=== PATIENT | male | born 1945 | race Caucasian/White ===

== ENCOUNTER 2023-01-09 16:23 | Emergency (ER) | payer MEDICARE ==
--- NOTE | 2023-01-09 16:42 | ED ---
General Adult HPI - General Source: patient Mode of arrival: ambulatory Limitations: no limitations <Davin Rodriguez - Last Filed: 01/09/23 16:35> <Tony Romero - Last Filed: 01/10/23 17:06> - General Chief complaint: Neuro Symptoms/Deficit Stated complaint: Poss Stroke - History of Present Illness Initial comments: 77-year-old male with no significant past medical history presents to the ED for chief complaint of vision loss. Patient states approximately a week ago lost vision in his right eye. Patient states she felt as if a curtain was closing over his right eye. Patient states that this lasted for approximately 15 minut es. Patient states he gradually regained vision in his right eye but notes she started seeing flashes in his peripheral vision. States he saw his museum curator today, Dr. Alonso Rollins, who reportedly did a workup which was unremarkable and advised him to see cardiology. States that Dr. Huffman's PA advised him to present to the ED to rule out a stroke. No other complaints. Nonsmoker nondrinker. (Davin Rodriguez) This is a 77-year-old male DF for evaluation. Presents today for evaluation of transient visual loss. Vision loss in his right eye which resolved. Patient did present to an museum curator and then presents the emergency department today for evaluation of possible stroke (Tony Romero) - Related Data Allergies Allergy/AdvReac Type Severity Reaction Status Date / Time Sulfa (Sulfonamide AdvReac Rash/Hives Verified 01/09/23 16:25 Antibiotics) Review of Systems ROS Other: All systems not noted in ROS Statement are negative. <Davin Rodriguez - Last Filed: 01/09/23 16:35> ROS Other: All systems not noted in ROS Statement are negative. <Tony Romero - Last Filed: 01/10/23 17:06> ROS Statement: Those systems with pertinent positive or pertinent negative responses have been documented in the HPI. Past Medical History Past Medical History: Hyperlipidemia History of Any Multi-Drug Resistant Organisms: None Reported Past Surgical History: No Surgical Hx Reported Past Psychological History: No Psychological Hx Reported Smoking Status: Never smoker Past Alcohol Use History: None Reported Past Drug Use History: None Reported <Davin Rodriguez - Last Filed: 01/09/23 16:35> General Exam Limitations: no limitations <Davin Rodriguez - Last Filed: 01/09/23 16:35> General appearance: alert, in no apparent distress Head exam: Present: atraumatic, normocephalic, normal inspection Eye exam: Present: normal appearance, PERRL, EOMI. Absent: scleral icterus, conjunctival injection, periorbital swelling ENT exam: Present: normal exam, mucous membranes moist Neck exam: Present: normal inspection. Absent: tenderness, meningismus, lymphadenopathy Respiratory exam: Present: normal lung sounds bilaterally. Absent: respiratory distress, wheezes, rales, rhonchi, stridor Cardiovascular Exam: Present: regular rate, normal rhythm, normal heart sounds. Absent: systolic murmur, diastolic murmur, rubs, gallop, clicks GI/Abdominal exam: Present: soft, normal bowel sounds. Absent: distended, tenderness, guarding, rebound, rigid Extremities exam: Present: normal inspection, full ROM, normal capillary refill. Absent: tenderness, pedal edema, joint swelling, calf tenderness Back exam: Present: normal inspection Neurological exam: Present: alert, oriented X3, CN II-XII intact Psychiatric exam: Present: normal affect, normal mood Skin exam: Present: warm, dry, intact, normal color. Absent: rash <Tony Romero - Last Filed: 01/10/23 17:06> Course <Tony Romero - Last Filed: 01/10/23 17:06> Vital Signs 01/09/23 01/09/23 01/09/23 16:25 16:47 20:46 Temperature 97.9 F 97.6 F Pulse Rate 70 67 56 L Respiratory 16 20 16 Rate Blood Pressure 155/76 186/99 186/99 O2 Sat by Pulse 100 100 100 Oximetry 01/09/23 21:56 Temperature 97.9 F Pulse Rate 58 L Respiratory 18 Rate Blood Pressure 144/87 O2 Sat by Pulse 99 Oximetry - Reevaluation(s) Reevaluation #1: 01/09/23 20:05 Record is reviewed (Tony Romero) Reevaluation #2: 01/09/23 20:05 Patient's symptoms remained improved without symptoms here in the ER (Tony Romero) Reevaluation #3: 01/10/23 17:05 patient informed of results questions answered (Tony Romero) Reevaluation #4: 01/09/23 23:42 Was pt. sent in by a medical professional or institution? @ -no Did you speak to anyone other than the patient for history? @ -no Did you review nursing and triage notes? @ -agree Were old charts reviewed? @ -yes Differential Diagnosis? @ -prior EKG interpreted by me (3pts min.)? @ -yes X-rays interpreted by me (1pt min.)? @ -yes CT interpreted by me (1pt min.)? @ -no U/S interpreted by me (1pt. min.)? @ -no What testing was considered but not performed? (CT, X-rays, U/S, labs)? Why? @ -no What meds were considered but not given? Why? @ -no Did you discuss the management of the patient with other professionals? @ -no Did you reconcile home meds? @ -no Was smoking cessation discussed for >3mins.? @ -no Was critical care preformed (if so, how long)? @ -no Were there social determinants of health that impacted care today? How? (Homelessness, low income, unemployed, alcoholism, drug addiction, transportation, low edu. Level, literacy, decrease access to med. care, fpc, rehab)? @ -no Was there de-escalation of care discussed even if they declined? (Discuss DNR or withdrawal of care, Hospice)? @ -no What co-morbidities impacted this encounter? (DM, HTN, Smoking, COPD, CAD, Cancer, CVA, Hep., AIDS, mental health diagnosis, sleep apnea, morbid obesity)? @ -none Was patient admitted / discharged? @ - Undiagnosed new problem with uncertain prognosis? @ -no Drug Therapy requiring intensive monitoring for toxicity (Heparin, Nitro, Insul in, Cardizem)? @ -no Were any procedures done? @ -no Diagnosis/symptom? @ - Acute, or Chronic, or Acute on Chronic? @ -acute Uncomplicated (without systemic symptoms) or Complicated (systemic symptoms)? @ -complicated Side effects of treatment? @ -no Exacerbation, Progression, or Severe Exacerbation] @ -no Poses a threat to life or bodily function? @ -yes (Tony Romero) EKG Findings - EKG Comments: EKG Findings:: EKG is sinus 62 ND 173 QRS 154 QTc 424 - EKG Results: EKG: interpreted by ERMD <Tony Romero - Last Filed: 01/10/23 17:06> Medical Decision Making - Lab Data Result diagrams: 01/09/23 17:10 01/09/23 17:10 <Tony Romero - Last Filed: 01/10/23 17:06> - Medical Decision Making 77 male DF for evaluation (Tony Romero) - Lab Data Lab Results 01/09/23 01/09/23 01/09/23 Range/Units 17:10 17:10 17:10 WBC 6.2 (3.8-10.6) k/uL RBC 4.45 (4.30-5.90) m/uL Hgb 14.4 (13.0-17.5) gm/dL Hct 43.8 (39.0-53.0) % MCV 98.4 (80.0-100.0) fL MCH 32.2 (25.0-35.0) pg MCHC 32.8 (31.0-37.0) g/dL RDW 12.3 (11.5-15.5) % Plt Count 260 (150-450) k/uL MPV 7.6 Neutrophils % 66 % Lymphocytes % 20 % Monocytes % 8 % Eosinophils % 4 % Basophils % 0 % Neutrophils # 4.1 (1.3-7.7) k/uL Lymphocytes # 1.3 (1.0-4.8) k/uL Monocytes # 0.5 (0-1.0) k/uL Eosinophils # 0.2 (0-0.7) k/uL Basophils # 0.0 (0-0.2) k/uL PT 10.5 (9.0-12.0) sec INR 1.0 (<1.2) APTT 22.5 (22.0-30.0) sec Sodium 139 (137-145) mmol/L Potassium 3.7 (3.5-5.1) mmol/L Chloride 106 (98-107) mmol/L Carbon Dioxide 27 (22-30) mmol/L Anion Gap 6 mmol/L BUN 20 (9-20) mg/dL Creatinine 0.79 (0.66-1.25) mg/dL Est GFR (CKD-EPI)AfAm >90 (>60 ml/min/1.73 sqM) Est GFR (CKD-EPI)NonAf 88 (>60 ml/min/1.73 sqM) Glucose 99 (74-99) mg/dL Calcium 8.9 (8.4-10.2) mg/dL Total Bilirubin 1.7 H (0.2-1.3) mg/dL AST 40 (17-59) U/L ALT 30 (4-49) U/L Alkaline Phosphatase 49 (38-126) U/L Creatine Kinase 260 H (55-170) U/L Troponin I (0.000-0.034) ng/mL Total Protein 6.3 (6.3-8.2) g/dL Albumin 3.8 (3.5-5.0) g/dL 01/09/23 Range/Units 17:10 WBC (3.8-10.6) k/uL RBC (4.30-5.90) m/uL Hgb (13.0-17.5) gm/dL Hct (39.0-53.0) % MCV (80.0-100.0) fL MCH (25.0-35.0) pg MCHC (31.0-37.0) g/dL RDW (11.5-15.5) % Plt Count (150-450) k/uL MPV Neutrophils % % Lymphocytes % % Monocytes % % Eosinophils % % Basophils % % Neutrophils # (1.3-7.7) k/uL Lymphocytes # (1.0-4.8) k/uL Monocytes # (0-1.0) k/uL Eosinophils # (0-0.7) k/uL Basophils # (0-0.2) k/uL PT (9.0-12.0) sec INR (<1.2) APTT (22.0-30.0) sec Sodium (137-145) mmol/L Potassium (3.5-5.1) mmol/L Chloride (98-107) mmol/L Carbon Dioxide (22-30) mmol/L Anion Gap mmol/L BUN (9-20) mg/dL Creatinine (0.66-1.25) mg/dL Est GFR (CKD-EPI)AfAm (>60 ml/min/1.73 sqM) Est GFR (CKD-EPI)NonAf (>60 ml/min/1.73 sqM) Glucose (74-99) mg/dL Calcium (8.4-10.2) mg/dL Total Bilirubin (0.2-1.3) mg/dL AST (17-59) U/L ALT (4-49) U/L Alkaline Phosphatase (38-126) U/L Creatine Kinase (55-170) U/L Troponin I <0.012 (0.000-0.034) ng/mL Total Protein (6.3-8.2) g/dL Albumin (3.5-5.0) g/dL Disposition <Davin Rodriguez - Last Filed: 01/09/23 16:35> Is patient prescribed a controlled substance at d/c from ED?: No Time of Disposition: 21:30 <Tony Romero - Last Filed: 01/10/23 17:06> Clinical Impression: Transient cerebral ischemia, Amaurosis fugax of right eye Disposition: HOME SELF-CARE Condition: Good Instructions (If sedation given, give patient instructions): Transient Ischemic Attack (ED) Referrals: None,Stated [REFERRING] - 1-2 days
[2023-01-09 17:27] LABS: Basophils % (A) 0 %; Eosinophils # (A) 0.2 k/uL (0-0.7); Eosinophils % (A) 4 %; HCT 43.8 % (39.0-53.0); HGB 14.4 gm/dL (13.0-17.5); Lymphocytes # (A) 1.3 k/uL (1.0-4.8); Lymphocytes % (A) 20 %; MCH 32.2 pg (25.0-35.0); MCHC 32.8 g/dL (31.0-37.0); MCV 98.4 fL (80.0-100.0); Mean Platelet Volume 7.6; Monocytes # (A) 0.5 k/uL (0-1.0); Monocytes % (A) 8 %; Neutrophils # (A) 4.1 k/uL (1.3-7.7); Neutrophils % (A) 66 %; Platelet Count 260 k/uL (150-450); RBC 4.45 m/uL (4.30-5.90); RDW 12.3 % (11.5-15.5); WBC 6.2 k/uL (3.8-10.6)
[2023-01-09 17:39] LABS: ALT 30 U/L (4-49); AST 40 U/L (17-59); African American GFR (CKD) >90 (>60 ml/min/1.73 sqM); Albumin 3.8 g/dL (3.5-5.0); Alkaline Phosphatase 49 U/L (38-126); Anion Gap 6 mmol/L; Blood Urea Nitrogen 20 mg/dL (9-20); Calcium 8.9 mg/dL (8.4-10.2); Carbon Dioxide 27 mmol/L (22-30); Chloride 106 mmol/L (98-107); Creatine Kinase 260 U/L (55-170); Glucose 99 mg/dL (74-99); Non-African American GFR(CKD) 88 (>60 ml/min/1.73 sqM); Potassium 3.7 mmol/L (3.5-5.1); Sodium 139 mmol/L (137-145); Total Bilirubin 1.7 mg/dL (0.2-1.3); Total Protein 6.3 g/dL (6.3-8.2)
[2023-01-09 17:40] LABS: Partial Thromboplastin Time 22.5 sec (22.0-30.0); Prothrombin Time 10.5 sec (9.0-12.0)
--- NOTE | 2023-01-09 18:23 | CT ---
EXAMINATION TYPE: CT brain wo con CT DLP: 1274.7 mGycm, Automated exposure control for dose reduction was used. DATE OF EXAM: 01/09/2023 6:13 PM COMPARISON: None. CLINICAL INDICATION:Male, 77 years old with history of vision loss r/o CVA, vision loss TECHNIQUE: Brain: Multiple axial CT images of the brain were obtained without IV contrast. Coronal and sagittal reformats reviewed. FINDINGS: Brain: Extra-axial spaces: No abnormal extra-axial fluid collections. Ventricular system: Within normal limits Cerebral parenchyma: No acute intraparenchymal hemorrhage or mass effect. The bell-white junction is well differentiated. Scattered hypoattenuating areas are seen within the white matter. Cerebellum: Unremarkable. Mass effect: No evidence of midline shift. Intracranial vasculature: unremarkable Soft tissues: Normal. Calvarium/osseous structures: No depressed skull fracture. Paranasal sinuses and mastoid air cells: Mild scattered paranasal sinus disease. Visualized orbits: Orbital contents are intact. IMPRESSION: 1. No acute intracranial process. 2. Nonspecific white matter changes, likely secondary to chronic small vessel ischemic disease.
--- NOTE | 2023-01-09 18:35 | CT ---
EXAMINATION TYPE: CT angio head neck CT DLP: 488.7 mGycm, Automated exposure control for dose reduction was used. DATE OF EXAM: 01/09/2023 6:26 PM COMPARISON: CT brain the same date. CLINICAL INDICATION:Male, 77 years old with history of vision loss r/o stroke; PHH, vision loss TECHNIQUE: Axially acquired helical CT angiogram of the head and neck was obtained with contrast util izing 65 cc of Isovue-370 administered intravenously. Axial images are supplemented with 3D reconstru ctions which were post-processed at an independent workstation. NASCET criteria used. FINDINGS: CTA HEAD: No evidence of acute intracranial hemorrhage, mass effect, or midline shift. The ventricles, sulci, a nd cisterns are unremarkable. The visualized portions of the internal carotid arteries, middle cerebral arteries, anterior cerebral arteries, and posterior cerebral arteries are patent. The basilar and vertebral arteries are patent. CTA NECK: Right Carotid System: The common carotid artery and external carotid artery are patent. The carotid bifurcation demonstrate s approximately 50% stenosis secondary to calcified and noncalcified plaque. The remaining portions o f the internal carotid artery demonstrate normal size without significant narrowing. Left Carotid System: The common carotid artery and external carotid artery are patent. Mild atherosclerotic plaque at the carotid bifurcation with no evidence of hemodynamically significant stenosis. The remaining portions of the internal carotid artery demonstrate normal size without significant narrowing. Vertebral arteries are patent without evidence hemodynamically significant stenosis. The vertebral ar teries are codominant. There is a three-vessel aortic arch. The origins of the great vessels are patent. No evidence of hemo dynamically significant stenosis. Multilevel degenerative changes cervical spine. Subcentimeter hypodense nodule within the right thyro id isthmus. IMPRESSION: 1. Approximately 50% stenosis at the right carotid bifurcation. No evidence for significant stenosis at the left carotid bifurcation. 2. No evidence of high-grade stenosis or intracranial aneurysm.
[2023-01-09 21:59] VITALS: BP 144/87; PULSE 58; RESP 18
[2023-01-09 22:00] VITALS: TEMP 97.9
== END 2023-01-09 22:07 | disposition home or self-care (01) ==
LOC: EC 16:23
DX: H34.01 Transient retinal artery occlusion, right eye (principal); Z88.2 Allergy status to sulfonamides
CPT/HCPCS: 36415; 93005; 80053; 82550; 84484; 85025; 85610; 85730; 70496; 70450; 70498; 99284; Q9967; 99283